=== PATIENT | female | born 1995 | race Caucasian/White ===

== ENCOUNTER 2020-07-02 17:17 | Emergency (ER) | payer MEDICAID, OTHER ==
[~2020-07-02] VITALS: Ht 170.2 cm; Wt 55.2 kg
[2020-07-02 20:09] LABS: ALANINE AMINOTRANSFERASE 24 U/L (12-78); ALBUMIN 4.4 G/DL (3.4-5.0); ALBUMIN/GLOBULIN RATIO 1.2 (1.1-1.5); ALKALINE PHOSPHATASE 94 IU/L (46-116); ANION GAP 10 (8-16); ASPARTATE AMINO TRANSFERASE 32 U/L (10-37); BILIRUBIN,TOTAL 0.7 MG/DL (0.1-1.0); BLOOD UREA NITROGEN 10 MG/DL (7-18); CALCIUM 9.2 MG/DL (8.5-10.1); CHLORIDE 105 MMOL/L (99-107); CREATININE 0.77 MG/DL (0.40-0.90); GLUCOSE 94 MG/DL (70-104); POTASSIUM 3.7 MMOL/L (3.5-5.1); SODIUM 140 MMOL/L (135-145); TOTAL CARBON DIOXIDE 25.5 MMOL/L (24-32); TOTAL PROTEIN 8.2 G/DL (6.4-8.2); eGFR > 90 ML/MIN
[2020-07-02 20:11] LABS: BASOPHILS % (AUTO) 0.4 % (0-1); EOSINOPHILS % (AUTO) 0.4 % (0-6); HEMATOCRIT 42.3 % (35.0-45.0); HEMOGLOBIN 14.4 g/dl (12.0-16.0); LYMPHOCYTES # (AUTO) 1.6 X10'3 (1.1-4.8); LYMPHOCYTES % (AUTO) 17.1 % (21-51); MEAN CORPUSCULAR HEMOGLOBIN 28.9 PG (27.0-31.0); MEAN CORPUSCULAR VOLUME 85.1 FL (78-98); MEAN PLATELET VOLUME 10.1 FL (7.4-10.4); MONOCYTES # (AUTO) 0.7 X10'3 (0-0.9); MONOCYTES % (AUTO) 7.2 % (2-12); NEUTROPHILS # (AUTO) 7.1 X10'3 (1.8-7.7); NEUTROPHILS % (AUTO) 74.9 % (42-75); PLATELET COUNT 179 X10'3 (140-440); RED BLOOD COUNT 4.97 X10'6 (4.20-5.60); RED CELL DISTRIBUTION WIDTH 12.9 % (11.5-14.5); WHITE BLOOD COUNT 9.5 X10'3 (4.5-11.0)
[2020-07-02] MEDS ORDERED: fluorescein sod 1mg ophthalmic strip EACHEYE ONE (20:40)
[2020-07-02] MEDS ORDERED: proparacaine 0.5% ophthalmic drops 15ml EACHEYE ONE (20:40)
[2020-07-02] MEDS ORDERED: iohexol 300mg/ml 100ml inj. ONE (21:02)
[2020-07-02 21:26] LABS: BETA HCG,QUANTITATIVE 3 mIU/ml
[2020-07-02] MEDS ORDERED: ERYT1OIN6 LEFTEYE (22:56)
[2020-07-02] MEDS ORDERED: AMOX-422 PO (22:56)
[2020-07-02 23:01] VITALS: BP 107/71
== END 2020-07-02 23:04 | disposition home or self-care (01) ==
LOC: ER 17:18
DX: L01.00 Impetigo, unspecified (principal); L03.213 Periorbital cellulitis; H10.9 Unspecified conjunctivitis; F15.90 Other stimulant use, unspecified, uncomplicated; Z79.2 Long term (current) use of antibiotics
CPT/HCPCS: 36415; 70487; 80053; 84702; 85025; 99285; Q9967

== ENCOUNTER 2021-08-19 11:37 | Emergency (ER) | payer MEDICAID ==
[~2021-08-19] VITALS: Ht 170.2 cm; Wt 56.4 kg
[2021-08-19 11:47] VITALS: BP 110/73
[2021-08-19] MEDS ORDERED: NAPR-56 PO (11:52)
[2021-08-19] MEDS ORDERED: PENI250T2 PO (11:52)
== END 2021-08-19 12:16 | disposition home or self-care (01) ==
LOC: ER 11:38
DX: K04.7 Periapical abscess without sinus (principal); K08.89 Other specified disorders of teeth and supporting structures; F15.90 Other stimulant use, unspecified, uncomplicated; Z79.2 Long term (current) use of antibiotics; Z79.899 Other long term (current) drug therapy
CPT/HCPCS: 99283

== ENCOUNTER 2021-08-27 20:21 | Emergency (ER) | payer MEDICAID ==
[~2021-08-27] VITALS: Ht 170.2 cm; Wt 56.8 kg
[~2021-08-27 20:21] MED LIST: NAPR-56 PO; PENI250T2 PO
[2021-08-27 20:40] VITALS: BP 143/84
[2021-08-27] MEDS ORDERED: NAPR-56 PO (20:43)
[2021-08-27] MEDS ORDERED: PENI250T2 PO (20:43)
== END 2021-08-27 21:00 | disposition home or self-care (01) ==
LOC: ER 20:21
DX: K04.7 Periapical abscess without sinus (principal); K08.89 Other specified disorders of teeth and supporting structures; F15.90 Other stimulant use, unspecified, uncomplicated; Z79.2 Long term (current) use of antibiotics; Z79.899 Other long term (current) drug therapy
CPT/HCPCS: 99283

== ENCOUNTER 2023-03-07 20:46 | Emergency (ER) | payer MEDICAID ==
[~2023-03-07] VITALS: Ht 165.1 cm; Wt 61.4 kg
[2023-03-07 21:18] VITALS: TEMP 98.7
[2023-03-07] MEDS ORDERED: ketorolac tromethamine 15mg/ml inj. IM ONE (22:20)
[2023-03-07] MEDS ORDERED: clindamycin 150mg capsule PO ONE (22:20)
[2023-03-07] MEDS ORDERED: CLIN150C2 PO (22:24)
[2023-03-07 22:41] VITALS: BP 124/78; PULSE 72; RESP 16; O2SAT 100
== END 2023-03-07 22:42 | disposition home or self-care (01) ==
LOC: ER 20:47
DX: K08.89 Other specified disorders of teeth and supporting structures (principal); F15.90 Other stimulant use, unspecified, uncomplicated; Z79.2 Long term (current) use of antibiotics
CPT/HCPCS: 96372; 99283; J1885

== ENCOUNTER 2023-05-17 13:11 | Emergency (ER) | payer MEDICAID ==
[~2023-05-17] VITALS: Ht 170.2 cm; Wt 63.6 kg
[2023-05-17 18:15] LABS: URINE HCG NEGATIVE (NEG)
[2023-05-17 18:39] LABS: URINE AMPHETAMINE SCREEN NEGATIVE (Neg); URINE BARBITUATE SCREEN NEGATIVE (Neg); URINE BENZODIAZEPINES SCREEN NEGATIVE (Neg); URINE CANNABINOID SCREEN POSITIVE (Neg); URINE COCAINE SCREEN POSITIVE (Neg); URINE METHADONE SCREEN NEGATIVE (Neg); URINE OPIATE SCREEN NEGATIVE (Neg); URINE PHENCYCLIDINE SCREEN NEGATIVE (Neg)
[2023-05-17 18:58] LABS: BILIRUBIN,URINE NEGATIVE (Neg); CLARITY,URINE SLIGHTLY CLOUDY (Clear); COLOR,URINE YELLOW (Yellow); GLUCOSE, URINE NEGATIVE (Neg); KETONES,URINE NEGATIVE (Neg); LEUKOCYTE ESTERASE ,URINE NEGATIVE (Neg); NITRITES, URINE NEGATIVE (Neg); OCCULT BLOOD,URINE TRACE-INTACT (Neg); PH,URINE 5.5 (4.8-8.0); PROTEIN,URINE NEGATIVE (Neg); UROBILINOGEN,URINE 0.2 E.U/dL (0.2-1.0)
[2023-05-17 19:25] LABS: BASOPHILS % (AUTO) 0.4 % (0-1); EOSINOPHILS # (AUTO) 0.1 X10'3 (0-0.9); EOSINOPHILS % (AUTO) 1.1 % (0-6); HEMOGLOBIN 13.3 g/dl (12.0-16.0); LYMPHOCYTES # (AUTO) 1.6 X10'3 (1.1-4.8); LYMPHOCYTES % (AUTO) 23.5 % (21-51); MEAN CORPUSCULAR HEMOGLOBIN 30.8 PG (27.0-31.0); MEAN CORPUSCULAR VOLUME 90.7 FL (78-98); MEAN PLATELET VOLUME 8.9 FL (7.4-10.4); MONOCYTES # (AUTO) 0.5 X10'3 (0-0.9); MONOCYTES % (AUTO) 7.2 % (2-12); NEUTROPHILS # (AUTO) 4.6 X10'3 (1.8-7.7); NEUTROPHILS % (AUTO) 67.8 % (42-75); PLATELET COUNT 215 X10'3 (140-440); RED CELL DISTRIBUTION WIDTH 15.4 % (11.5-14.5); WHITE BLOOD COUNT 6.7 X10'3 (4.5-11.0)
[2023-05-17 19:36] LABS: UA COLLECTION TYPE VOIDED
[2023-05-17 19:38] LABS: BACTERIA,URINE 1+ /HPF (Neg); MUCUS STRANDS FEW /LPF (Neg); RBC,URINE 0-2 /HPF (0-2); SQUAMOUS EPITHELIAL CELL,UR FEW /LPF (FEW); TRANSITIONAL EPI CELLS,URINE FEW /HPF
[2023-05-17 19:39] LABS: ANION GAP 9 (8-16); BLOOD UREA NITROGEN 15 MG/DL (7-18); BUN/CREATININE RATIO 19.5 (10.0-20.0); CALCIUM 8.9 MG/DL (8.5-10.1); CHLORIDE 105 MMOL/L (99-107); CREATININE 0.77 MG/DL (0.40-0.90); GLUCOSE 121 MG/DL (70-104); POTASSIUM 3.5 MMOL/L (3.5-5.1); SODIUM 141 MMOL/L (135-145); TOTAL CARBON DIOXIDE 27.2 MMOL/L (24-32); eCRCL 106 ML/MIN; eGFR 89 ML/MIN
[2023-05-17 19:40] LABS: ALANINE AMINOTRANSFERASE 22 U/L (12-78); ALBUMIN 3.6 G/DL (3.4-5.0); ALBUMIN/GLOBULIN RATIO 0.9 (1.1-1.5); ALKALINE PHOSPHATASE 62 IU/L (46-116); ASPARTATE AMINO TRANSFERASE 20 U/L (10-37); BILIRUBIN,TOTAL 0.3 MG/DL (0.1-1.0); TOTAL PROTEIN 7.4 G/DL (6.4-8.2)
[2023-05-17 19:49] LABS: ETHANOL < 10 MG/DL (<10); THYROID STIMULATING HORMONE 1.38 ulU/ml (0.34-4.50)
[2023-05-17 23:00] VITALS: BP 114/71; PULSE 81; RESP 16; TEMP 98.5; O2SAT 100
== END 2023-05-17 23:02 | disposition home or self-care (01) ==
LOC: ER 13:12
DX: R20.0 Anesthesia of skin (principal); R53.1 Weakness; F17.200 Nicotine dependence, unspecified, uncomplicated; F15.10 Other stimulant abuse, uncomplicated
CPT/HCPCS: 36415; 80053; 80305; 80320; 81001; 81025; 84443; 85025; 99283